=== PATIENT | female | born 1985 | race Caucasian/White ===

== ENCOUNTER 2021-09-27 13:25 | Outpatient (REF) | payer OTHER, SELFPAY ==
[2021-09-27 14:25] LABS: Amphetamine Screen Urine Not Detected (Not Detect); Barbiturates, Urine Not Detected (Not Detect); Benzodiazepines Screen Urine Not Detected (Not Detect); Cannabinoid Screen Urine POSITIVE (Not Detect); Cocaine Screen Urine Not Detected (Not Detect); Fentanyl, urine Not Detected (Not Detect); Opiate Screen Urine Not Detected (Not Detect); Phencyclidine Screen Urine Not Detected (Not Detect)
== END 2021-09-27 13:26 | disposition home or self-care (01) ==
LOC: HO.LNP 13:25
PROVIDERS: Visit Provider Nurse Practitioner Psychiatric/Mental Health
DX: F10.20 Alcohol dependence, uncomplicated (principal)
CPT/HCPCS: 80307

== ENCOUNTER 2021-10-14 12:50 | Outpatient (REF) | payer OTHER, SELFPAY ==
[2021-10-14 13:05] LABS: MANUAL DIFF FLAG NO
[2021-10-14 13:20] LABS: Basophils Absolute Auto 0.1 X10*3/uL (0.0-0.2); Basophils Percent Auto 0.4 % (0-2); Eosinophils Absolute Auto 0.2 X10*3/uL (0.0-0.4); Eosinophils Percent Auto 1.9 % (0-4); Hematocrit 41.1 % (37.0-47.0); Hemoglobin 13.5 g/dl (12.0-16.0); Imm Gran Abs Auto 0.04 X10*3/uL (0.00-0.03); Imm Gran Pct Auto 0.4 % (0.0-0.4); Lymphocytes Absolute Auto 3.2 X10*3/uL (1.2-4.9); Lymphocytes Percent Auto 28.6 % (20-40); Mean Corpuscular HGB Conc 32.8 g/dl (31.0-35.0); Mean Corpuscular Hemoglobin 29.3 pg (27.0-33.0); Mean Corpuscular Volume 89.2 fL (80.0-98.0); Mean Platelet Volume 9.6 fL (9.4-12.3); Monocytes Absolute Auto 0.7 X10*3/uL (0.1-1.2); Monocytes Percent Auto 5.8 % (2-11); Neutrophils Percent Auto 62.9 % (45-73); Platelet Count 284 X10*3/uL (160-400); Red Blood Count 4.61 X10*6/uL (4.20-5.50); Red Cell Distribution Width 13.6 % (11.0-16.0); White Blood Count 11.2 X10*3/uL (4.8-10.8)
[2021-10-14 13:52] LABS: Alanine Aminotransferase 11 U/L (0-31); Albumin Level 4.2 g/dL (3.5-5.0); Alkaline Phosphatase 90 U/L (39-117); Anion Gap 14 (12-20); Aspartate Amino Transferase 15 U/L (5-31); Bilirubin Direct < 0.2 mg/dL (0.0-0.5); Bilirubin Total 0.2 mg/dL (0.0-1.0); Blood Urea Nitrogen 9 mg/dL (9-16); Carbon Dioxide 26 mmol/L (22-29); Chloride 103 mmol/L (96-108); Estimated Glomerular Filt Rate > 60; Ethanol < 10 mg/dL; Glucose Random 93 mg/dL (60-115); Potassium 4.1 mmol/L (3.3-5.1); Sodium 139 mmol/L (135-145); Total Protein 7.6 g/dL (6.5-8.0)
== END 2021-10-14 12:51 | disposition home or self-care (01) ==
LOC: HO.LAB 12:50
PROVIDERS: Visit Provider Nurse Practitioner Psychiatric/Mental Health
DX: F33.2 Major depressive disorder, recurrent severe without psychotic features (principal)
CPT/HCPCS: 36415; 80048; 80076; 82077; 85025

== ENCOUNTER 2021-10-21 09:45 | Outpatient (RCR) | payer OTHER, SELFPAY ==
[2021-09-27 11:59] VITALS: BP 108/70; PULSE 72; TEMP 36.1
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
[2021-09-27 14:39] VITALS: BMI 31.3
--- NOTE | 2021-09-27 15:04 | PC.ADMIT ---
Patient is a 36 year old female who was referred to [facility] by her therapist d/t increased sxs of depression and anxiety. Patient reports many stresses including recent divorce, job related stress, financial stress, and recent termination of . 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 She is currently on a leave of absence from work d/t her symptoms. In addition, patient reports using marijuana daily every hour and binge drinking 2 times in the last month to cope with how she is feeling. Patient's greatest fear is failing as a parent and passing on her trauma to her children. While in the program patient wants to learn healthy coping skills. Patient is alert and oriented x4. Presents with depressed mood and affect. Denied SI or thoughts to kill herself. Patient has a copy of her safety plan and crisis number if needed. Patient wants to work on healthier coping skills to deal with how she is feeling. Medications reconciled with patient and patient's pharmacy. Patient reports taking medications as prescribed.
--- NOTE | 2021-09-29 15:48 | PC.NURSE ---
Case opened in treatment team.
--- NOTE | 2021-09-30 13:48 | PC.NURSE ---
I met with pt and went over treatment plan, schedule, and aftercare. She was tearful and appeared quite overwhelmed, and reported having a negative experience with some staff members. She reported having a difficult first few days in which she felt triggered at times emotionally by peers talking about substance use recovery and anger management issues. She spoke about a history of being inpatient at another hospital and being traumatized by the experience. She also shared about struggling with finding a med provider, as hers will be leaving [facility]. She said her med provider is leaving the agency where she is being seen, and her therapist has joined another agency, so she is in need of a med provider. So, she is in need of a med provider. She also raised concerns about how she will get her FMLA extended, reporting a sense that she will need more time off from work. We discussed ways to respond and cope when feeling triggered in groups, and ways to use treatment more effectively. I let her know that we can also help her find another treatment setting if she chooses. She was somewhat more calm after the meeting.
--- NOTE | 2021-10-03 14:51 | PC.NURSE ---
I called to make an appt with Miguelina Huber APRN for medication management. I spoke to Miguelina Huber, who asked me to please call back on Sunday10/03/21, when her special skills officer, Mariia, is back from vacation. She confirmed that she is taking new clients, but said she doesn't know how to enter in the information without the special skills officer. I will call again on Sunday.
--- NOTE | 2021-10-04 14:21 | PC.NURSE ---
Patient signed a release for her new PCP located at [facility] in [place] who patient stated she made an appointment with in October 2021.
--- NOTE | 2021-10-06 10:33 | HO.PHPPROGNO ---
Subjective Subjective Date of Service: 10/06/21 Reason For Visit: MDD,CATHI Medical Problems Affecting Mental Status: No Interim History: Describes mood as not a good day , increased anxiety. Was hesitant to resume taking Wellbutrin, started taking it again Sunday. No report of SI/HI. Continues with depressed, anxious mood. Medication Compliance: Yes Side effects from medications: No Attending Groups: Yes Review of Systems Acute medical concerns: No Medical Review of Systems: unchanged Review of Systems Review of Systems as per HPI. Yes all other systems are reviewed and are negative Constitutional: Reports no additional constitutional complaints Mental Status Exam Mental Status Exam Narrative: NAD. No abnormal movements, gait and posture normal. Patient Appearance: Appropriate Patient Orientation: Person, Place, Time and Situation Level of Consciousness: Appropriate Patient Behavior: Appropriate, Cooperative, Anxious, Good Eye Contact and Crying (tearful during encounter) Mood Description: Depressed and Anxious Affect Description: Depressed and Anxious Patient Cognition Impaired: No Ability to Follow Directions: Good Speech Pattern: Clear, Appropriate and Coherent Memory Description: Intact Hallucinations: None Delusions: Not Present Thought Process: Intact Thought Content: positive for Intact Depressive Symptoms: Increased Anxiety, Diff. Making Decisions, Increased Irritability, Difficulty Sleeping, Changes in Appetite, Loss of Int. in Activity, Feelings of Worthlessness, Hopelessness, Isolating-Friends/Family, Feelings of Guilt, Increased Fatigue, Loss of Energy and Difficulty Concentrating Judgement: Fair Diagnostics Vital Signs (24Hr): BMI result Body Mass Index 31.3 Assessment & Plan Assessment & Plan (1) Major depressive disorder, recurrent severe without psychotic features: Status: Acute Code(s): F33.2 - Major depressive disorder, recurrent severe without psychotic features Assessment and Plan: Describes mood as not a good day , increased anxiety. States she is dealing with multiple issues. She says she knew she would need to let housekeeping and other duties go while in program, so that she could fully participate while here, and give her children her full attention when not here. She says this is adding to her stress level. Tearful at times. Was hesitant to resume taking Wellbutrin, as she was unsure if she had wanted to take it again. She decided to orange picker the script, and started taking it again Sunday. She says the script was actually from her outpatient provider, not this typewriter operator automatic. No report of SI/HI. Continues with depressed, anxious mood. Finding groups somewhat helpful. (2) Generalized anxiety disorder: Status: Acute Code(s): F41.1 - Generalized anxiety disorder (3) Alcohol dependence, uncomplicated: Status: Acute Code(s): F10.20 - Alcohol dependence, uncomplicated Assessment and Plan: Patient denies any concerns with alcohol use. She states that she uses it several times per month, as a coping mechanism, but does not see this as a problem. We discussed the resumption of wellbutrin, and her history of no seizures. She reports today that she does have a hx of a seizure when young, but states that it was trauma/panic related. She says that she has never experienced seizures while drinking or withdrawing from alcohol. Patient was asked if she believes she has a problem with alcohol, and she stated no . She says she drinks only several times per month. She was asked if she would like to join the COD group, and she stated no . (4) Post-traumatic stress disorder, chronic: Status: Acute Code(s): F43.12 - Post-traumatic stress disorder, chronic Plan 1. Continue with current [facility] plan of care. 2. Continue with current medication regimen, as prescribed by outpatient provider. 3. Follow-up as per protocol. Patient educated on: diagnosis, medication risk/benefits, substance abuse and therapeutic strategies Informed Consent: understands Reason for contiued partial hosp. stay Substantial Risk for: rapid decompensation and med/psych decompensation Certification I certify that partial hospital treatment is medically necessary due to the symptoms and problems resulting from the patient's mental illness and the failure to treat the patient at the partial hospital level of care would likely result in the patient requiring inpatient psychiatric care which could not be prevented at a less intensive level of care. I spent minutes with the patient and/or on the patient floor today, greater than?50% of which was spent counseling/coordinating care. Discharge Plan Discharge Attending provider: Denton Sarmiento Medications: New bupropion HCl [Wellbutrin XL] 150 mg tablet extended release 24 hr 150 mg PO QAM Qty: 30 0RF No Action fluoxetine [Prozac] 40 mg Capsule 40 mg PO DAILY fluoxetine [Prozac] 20 mg Capsule 20 mg PO DAILY Rx Instructions: Take with 40 mg capsule. Stand Alone Forms: Patient Portal Discharge page Patient Education: Depression (DC), Abuse of Alcohol (DC)
--- NOTE | 2021-10-10 14:20 | PC.NURSE ---
As planned, I attempted to call Miguelina Huber's office to refer pt. I called several times and received no answer and no VM. It rang many ties and then busy signal. I will plan to call again tomorrow.
--- NOTE | 2021-10-19 15:31 | PC.NURSE ---
Pt called out stating she didn't sleep well last night.
--- NOTE | 2021-10-21 15:14 | PC.NURSE ---
Patient scheduled for routine discharge today. Feeling more stable and ready for discharge. Presents with brighter mood and affect. Denied SI or thoughts to harm herself. Reviewed patient medications with patient. Patient reports taking medications as prescribed and no issues regarding medications.
--- NOTE | 2021-10-21 15:52 | P.PNPSP_ITS ---
Subjective Subjective Date of Service: 10/21/21 Reason For Visit: MDD,CATHI Interim History: Patient presents for follow-up. Today is last day in partial hospitalization program. Patient reports that she feels she is in better place than when she initially presented. States she has been able to care for herself (shower and brush her teeth) which are things that she was having difficulty doing before. Tolerating Wellbutrin. Feels this has been helpful. No questions or concerns at this time. Review of Systems Constitutional: Reports as per HPI and Reports no additional constitutional complaints Mental Status Exam Mental Status Exam Narrative: NAD. No abnormal movements, gait and posture normal. Patient Appearance: Appropriate Patient Orientation: Person, Place, Time and Situation Level of Consciousness: Appropriate Patient Behavior: Appropriate, Cooperative, Anxious and Good Eye Contact Mood Description: Depressed and Anxious Affect Description: Depressed and Anxious Patient Cognition Impaired: No Ability to Follow Directions: Good Speech Pattern: Clear, Appropriate and Coherent Memory Description: Intact Hallucinations: None Delusions: Not Present Thought Process: Intact Thought Content: positive for Intact Judgement: Fair Diagnostics Vital Signs (24Hr): BMI result Body Mass Index 31.3 Assessment & Plan Assessment & Plan (1) Major depressive disorder, recurrent severe without psychotic features: Status: Acute Code(s): F33.2 - Major depressive disorder, recurrent severe without psychotic features Assessment and Plan: * Continue medication as prescribed * Patient scheduled to follow-up with outpatient providers * Stable for discharge Certification I certify that partial hospital treatment is medically necessary due to the symptoms and problems resulting from the patient's mental illness and the failure to treat the patient at the partial hospital level of care would likely result in the patient requiring inpatient psychiatric care which could not be prevented at a less intensive level of care. I spent minutes with the patient and/or on the patient floor today, greater than?50% of which was spent counseling/coordinating care. Discharge Plan Discharge Attending provider: Denton Sarmiento Medications: New bupropion HCl [Wellbutrin XL] 150 mg tablet extended release 24 hr 150 mg PO QAM Qty: 30 0RF fluoxetine 40 mg capsule 40 mg PO DAILY Qty: 30 0RF Rx Instructions: take with fluoxetine 20mg daily fluoxetine 20 mg capsule 20 mg PO DAILY Qty: 30 0RF Rx Instructions: take with fluoxetine 40mg Discontinued fluoxetine [Prozac] 40 mg Capsule 40 mg PO DAILY fluoxetine [Prozac] 20 mg Capsule 20 mg PO DAILY Rx Instructions: Take with 40 mg capsule. Stand Alone Forms: Patient Portal Discharge page Patient Education: Depression (DC), Abuse of Alcohol (DC)
--- NOTE | 2021-10-21 16:11 | PC.NURSE ---
I called and spoke to pt's therapist, Kelin Steinberg [facility]. I informed her of pt's aftercare plans, clinical presentation at discharge, and work accomplished in [facility].
== END 2021-10-21 23:59 | disposition home or self-care (01) ==
LOC: HO.PHPA 09:45
PROVIDERS: Visit Provider Psychiatry & Neurology Psychiatry
DX: F33.2 Major depressive disorder, recurrent severe without psychotic features (principal); F41.1 Generalized anxiety disorder; F43.12 Post-traumatic stress disorder, chronic; F10.20 Alcohol dependence, uncomplicated
CPT/HCPCS: 90791; 90853

== ENCOUNTER 2022-11-23 14:26 | Emergency (ER) | payer OTHER, SELFPAY ==
--- NOTE | 2022-11-23 14:29 | ED_ITS ---
HPI - General Adult General Chief complaint: Arrhythmia/Palpitations Stated complaint: irregular heart beat Related Data Previous Rx's Medication Instructions Recorded bupropion HCl 150 mg 24 hr tablet, 150 mg PO QAM #30 tabs 09/27/21 extended release (Wellbutrin XL) fluoxetine 20 mg capsule 20 mg PO DAILY #30 caps 10/10/21 fluoxetine 40 mg capsule 40 mg PO DAILY #30 caps 10/10/21 Allergies Allergy/AdvReac Type Severity Reaction Status Date / Time No Known Allergies Allergy Verified 09/27/21 15:13 [facility] Past Medical History Medical History Labral tear of left hip joint Right hand fracture Scoliosis Surgical History History of delivery Social History Social History Household Members: Children Patient Tobacco Use Status: Never used Tobacco Advance Directives: No Advance Directives Information Provided: No Physical Exam ED Vital Signs: BMI result Body Mass Index 26.7 Course Course Course Narrative: RME- 37 year old female presents for evaluation of dizziness. Her smart watch told her that her HR was in the 40's. She reports that she had COVID last week and is currently taking antibiotics for strep throat Plam- EKG, labs Medical Decision Making Lab Data 11/23/22 14:47 11/23/22 14:47 Labs: Lab Results 11/23/22 Range/Units 14:47 WBC 9.0 (4.8-10.8) X10*3/uL RBC 5.08 (4.20-5.50) X10*6/uL Hgb 15.2 (12.0-16.0) g/dl Hct 44.5 (37.0-47.0) % MCV 87.6 (80.0-98.0) fL MCH 29.9 (27.0-33.0) pg MCHC 34.2 (31.0-35.0) g/dl RDW 12.9 (11.0-16.0) % Plt Count 327 (160-400) X10*3/uL MPV 9.9 (9.4-12.3) fL Immature Gran % (Auto) 0.2 (0.0-0.4) % Neut % (Auto) 59.2 (45-73) % Lymph % (Auto) 33.1 (20-40) % [place] % (Auto) 5.8 (2-11) % Eos % (Auto) 1.3 (0-4) % Baso % (Auto) 0.4 (0-2) % Lymph # (Auto) 3.0 (1.2-4.9) X10*3/uL [place] # (Auto) 0.5 (0.1-1.2) X10*3/uL Eos # (Auto) 0.1 (0.0-0.4) X10*3/uL Baso # (Auto) 0.0 (0.0-0.2) X10*3/uL Abs Immat Gran (auto) 0.02 (0.00-0.03) X10*3/uL Absolute Neuts (auto) 5.3 (2.0-8.3) x10*3/uL Absolute Nucleated RBC 0.000 (0.0-0.012) X10*3/uL Nucleated RBC % (auto) 0.0 (0.0-0.2) /100WBC Sodium 142 (135-145) mmol/L Potassium 4.0 (3.3-5.1) mmol/L Chloride 110 H (96-108) mmol/L Carbon Dioxide 20 L (22-29) mmol/L Anion Gap 16 (12-20) BUN 9 (9-16) mg/dL Creatinine 0.81 (0.5-1.4) mg/dL Estim Creat Clear Calc TNP Estimated GFR > 60 Random Glucose 104 (60-115) mg/dL Calcium 10.5 H D (8.4-10.2) mg/dL TSH 1.29 (0.32-4.0) uIU/mL Discharge Plan Discharge Clinical Impression: Palpitations Patient Disposition: Left W/O Completing Treatment Prescriptions: No Action bupropion HCl [Wellbutrin XL] 150 mg tablet extended release 24 hr 150 mg PO QAM Qty: 30 0RF fluoxetine 40 mg capsule 40 mg PO DAILY Qty: 30 0RF Rx Instructions: take with fluoxetine 20mg daily fluoxetine 20 mg capsule 20 mg PO DAILY Qty: 30 0RF Rx Instructions: take with fluoxetine 40mg Interventions: ED Discharge Assessment Last Done: 11/23/22 16:44 Discharge Date/Time: 11/23/22 16:51
--- NOTE | 2022-11-23 14:29 | ECG_ITS ---
Test Reason : IRREGULAR HEARTBEAT Blood Pressure : / mmHG Vent. Rate : 090 BPM Atrial Rate : 090 BPM P-R Int : 130 ms QRS Dur : 084 ms QT Int : 360 ms P-R-T Axes : 049 043 042 degrees QTc Int : 440 ms Normal sinus rhythm Normal ECG No previous ECGs available Referred By: Prakash Pang Electronically Signed By:IDALIA CHOWDARY MD
[2022-11-23 14:51] LABS: MANUAL DIFF FLAG NO
[2022-11-23 14:53] LABS: Basophils Percent Auto 0.4 % (0-2); Eosinophils Absolute Auto 0.1 X10*3/uL (0.0-0.4); Eosinophils Percent Auto 1.3 % (0-4); Hematocrit 44.5 % (37.0-47.0); Hemoglobin 15.2 g/dl (12.0-16.0); Imm Gran Abs Auto 0.02 X10*3/uL (0.00-0.03); Imm Gran Pct Auto 0.2 % (0.0-0.4); Lymphocytes Percent Auto 33.1 % (20-40); Mean Corpuscular HGB Conc 34.2 g/dl (31.0-35.0); Mean Corpuscular Hemoglobin 29.9 pg (27.0-33.0); Mean Corpuscular Volume 87.6 fL (80.0-98.0); Mean Platelet Volume 9.9 fL (9.4-12.3); Monocytes Absolute Auto 0.5 X10*3/uL (0.1-1.2); Monocytes Percent Auto 5.8 % (2-11); Neutrophils Absolute Auto 5.3 x10*3/uL (2.0-8.3); Neutrophils Percent Auto 59.2 % (45-73); Platelet Count 327 X10*3/uL (160-400); Red Blood Count 5.08 X10*6/uL (4.20-5.50); Red Cell Distribution Width 12.9 % (11.0-16.0)
[2022-11-23 15:13] VITALS: BP 145/94; PULSE 83; RESP 18; TEMP 36.4; O2SAT 98; BMI 26.7
[2022-11-23 15:13] LABS: Anion Gap 16 (12-20); Blood Urea Nitrogen 9 mg/dL (9-16); Calcium 10.5 mg/dL (8.4-10.2); Carbon Dioxide 20 mmol/L (22-29); Chloride 110 mmol/L (96-108); Estimated Glomerular Filt Rate > 60; Glucose Random 104 mg/dL (60-115); Sodium 142 mmol/L (135-145)
[2022-11-23 15:30] LABS: TSH reflex Free T4 1.29 uIU/mL (0.32-4.0)
== END 2022-11-23 16:51 | disposition left against medical advice (07) ==
LOC: HO.ED 16:51
PROVIDERS: Physician Assistant; Emergency Provider Emergency Medicine; PCP Family Medicine
DX: R00.2 Palpitations (principal); Z79.899 Other long term (current) drug therapy
CPT/HCPCS: 36415; 80048; 84443; 85025; 93005; 99283